=== PATIENT | female | born 1955 | race Caucasian/White ===

== ENCOUNTER 2023-06-25 07:17 | Day surgery (SDC) | payer MEDICARE ==
[~2023-06-25] VITALS: Ht 149.9 cm; Wt 78.2 kg
[~2023-06-25 07:17] MED LIST: ATOR40TA75 PO; CETI10TA4 PO; CRAN400C PO; DULO1CAP5 PO; GABA600T4 PO; HYDR50TA70 PO; LOSA100T46 PO; MELO7.5T35 PO; MONT10TA97 PO; MYRB25TA PO; NEXI20CA PO; OMEG350C PO; PHENYLEPHRINE 10% OPHTH SOL 5ML OD PRN; THERTAB52 PO; TIZA4CAP PO; TRAM50TA2 PO
[2023-06-25] MEDS ORDERED: fentaNYL 100 MCG/2 ML INJECTION As Ordered ONE (07:24)
[2023-06-25] MEDS ORDERED: MIDAZOLAM INJ 2MG/2ML VIAL As Ordered ONE (07:24)
[2023-06-25] MEDS: ATROPINE SULFATE 1% OPHTH SOLN 2ML BTL OD SCH (07:44)
[2023-06-25] MEDS: PHENYLEPHRINE 2.5% OPHTH SOL 2ML OD SCH (07:44)
[2023-06-25] MEDS: LIDOCAINE 3.5 % 1ML OPHTH TOPICAL GEL OU ONE (07:44)
[2023-06-25] MEDS: TROPICAMIDE 1% OPHTH SOLN 15ML OD SCH (07:44)
[2023-06-25] MEDS: OFLOXACIN 0.3 % (OCUFLOX) OPTH SOL 5ML OD ONE (07:45)
[2023-06-25] MEDS: LIDOCAINE 1% SDV 5ML VIAL As Ordered ONE (09:06)
[2023-06-25] MEDS: BSS IRRIG/VANCO(10MG)/TOBRA(5MG)/EPINEPH(1:1000-0.5CC)500ML BAG-ORONLY As Ordered ONE (09:07)
[2023-06-25] MEDS: CEFUROXIME 1MG/0.1ML INTRACAMERAL INJ As Ordered ONE (09:07)
[2023-06-25 09:21] VITALS: BP 111/55; TEMP 97.5; O2SAT 94
[2023-06-30] MEDS ORDERED: DULO1CAP6 PO (08:51)
[2023-06-30] MEDS ORDERED: SYST1SOL4 OU (08:51)
[2023-06-30] MEDS ORDERED: AMLO1TAB25 PO (08:51)
[2023-06-30] MEDS ORDERED: MULT-40 PO (08:51)
[2023-06-30] MEDS ORDERED: PROBCAP14 PO (08:51)
[2023-06-30] MEDS ORDERED: AZEL0.055 NARES (08:51)
[2023-06-30] MEDS ORDERED: FLON1SPR (08:51)
[2023-06-30] MEDS ORDERED: B-12100010 PO (10:03)
== END 2023-06-25 09:35 | disposition home or self-care (01) ==
LOC: M SDC 07:17
PROVIDERS: ATTEND Ophthalmology
DX: H25.11 Age-related nuclear cataract, right eye (principal); R06.83 Snoring; J30.9 Allergic rhinitis, unspecified; Z88.2 Allergy status to sulfonamides; Z79.899 Other long term (current) drug therapy
CPT/HCPCS: 66984; J0697; J2250; J3010; V2632

== ENCOUNTER → 2023-10-29 | Outpatient (REF) | payer MEDICARE, MEDICAID ==
[~2023-10-29] MED LIST changes: +AMLO1TAB25 PO; +AZEL1SPR4 NARES; +B-12100010 PO; -CRAN400C PO; +CRANBERRY400 MG PO; +DULO1CAP6 PO; +FLON1SPR; +GABA-1490 PO; -GABA600T4 PO; +MULT-40 PO; -PHENYLEPHRINE 10% OPHTH SOL 5ML OD PRN; +PROBCAP14 PO; +SYST1SOL4 OU
== END ==
LOC: M LAB REF 16:09
PROVIDERS: ATTEND Student in an Organized Health Care Education/Training Program
DX: R30.0 Dysuria (principal)